=== PATIENT | male | born 1980 | race Caucasian/White ===

== ENCOUNTER 2023-09-14 13:08 | Emergency (ER) | payer BC, SELFPAY ==
--- NOTE | ~2023-09-14 | XR_ITS ---
EXAMINATION: XR hand RT min 3V DATE: 09/14/2023 13:56 INDICATION: Right hand swelling and drainage. TECHNIQUE: 4 views of right hand were obtained. COMPARISON: None. FINDINGS: Bone alignment is normal. No fracture. 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 IMPRESSION: 1. No evidence of osteomyelitis. Reviewed, dictated and finalized at location A.
[2023-09-14 13:14] VITALS: BP 143/94; PULSE 82; RESP 16; TEMP 36.8; O2SAT 97
--- NOTE | 2023-09-14 13:19 | ED.SKABFB ---
HPI - Skin/Abscess/Foreign Bdy General Chief complaint: Skin/Abscess/Foreign Body <Wilfred Francisco PA-C - Last Filed: 09/14/23 16:54> Stated complaint: staff infection on hand <Wilfred Francisco PA-C - Last Filed: 09/14/23 16:54> Time Seen by Provider: 09/14/23 13:11 <REX Brown Last Filed: 09/14/23 16:54> Source: patient <REX Brown Last Filed: 09/14/23 16:54> Mode of arrival: ambulatory <REX Brown Last Filed: 09/14/23 16:54> Limitations: no limitations <REX Brown Last Filed: 09/14/23 16:54> History of Present Illness HPI narrative: This is a 43-year-old male who presents to the ED with chief complaint of possible staph infection to the right hand. 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 He states that on Sunday 3 days ago he started to have some redness and swelling to the right 5th knuckle. States that the swelling has gradually progressed and pain has increased. Reports that the area has been draining purulent/there is fluid. He states that all started with a accidental abrasion from his dog. <Wilfred Francisco PA-C - Last Filed: 09/14/23 16:54> Related Data Allergies/Adverse reactions: Allergies Allergy/AdvReac Type Severity Reaction Status Date / Time No Known Allergies Allergy Verified 09/14/23 13:09 <REX Brown Last Filed: 09/14/23 16:54> Review of Systems Review of Systems: All systems as dictated in HPI <REX Brown Last Filed: 09/14/23 16:54> Exam Narrative: GENERAL: Well-appearing, well-nourished, and in no acute distress. HEAD: Normocephalic, atraumatic. EYES: PERRLA and EOMI. ENT: Nares clear, no rhinorrhea or epistaxis. Mucous membranes moist. Oropharynx without tonsillar hypertrophy exudate or other lesions. NECK: Supple. No adenopathy or masses. CHEST: No respiratory distress. Clear to auscultation. No wheezes rales or rhonchi HEART: Regular rate and rhythm. No murmur heard. Normal peripheral pulses. ABDOMEN: Soft, nontender, nondistended, normal active bowel sounds. MSK: Normal range of motion. No edema. Full range of motion bilateral hands, however with pain SKIN: your the month swelling to the right 5th MCP dorsally. There is serous/purulent material actively draining out of a small 2 mm abrasion type wound. The wound does not appear to be very deep. The area is tender to touch and purulence is easily expressed with light pressure. NEURO: Alert and oriented x4. No focal deficits. PSYCH: Normal mood and affect. bedside ultrasound: Able to examine the soft tissue and joint space of the right 5th MCP. Does not appear that the infection is tracking deep into joint space. Soft tissue swelling is noted and small superficial fluid collection noted. <Wilfred Francisco PA-C - Last Filed: 09/14/23 16:54> Course Vital Signs Vital signs: Vital Signs Temperature 98.3 F 09/14/23 13:14 Pulse Rate 82 09/14/23 13:14 Respiratory Rate 16 09/14/23 13:14 Blood Pressure 143/94 H 09/14/23 13:14 Pulse Oximetry 97 09/14/23 13:14 Oxygen Delivery Room Air 09/14/23 13:14 Temperature 98.3 F 09/14/23 13:14 Pulse Rate 84 09/14/23 16:34 Respiratory Rate 17 09/14/23 16:34 Blood Pressure 120/82 09/14/23 16:34 Pulse Oximetry 98 09/14/23 16:34 Oxygen Delivery Room Air 09/14/23 13:14 <Wilfred Francisco PA-C - Last Filed: 09/14/23 16:54> Vital Signs Temperature 98.3 F 09/14/23 13:14 Pulse Rate 82 09/14/23 13:14 Respiratory Rate 16 09/14/23 13:14 Blood Pressure 143/94 H 09/14/23 13:14 Pulse Oximetry 97 09/14/23 13:14 Oxygen Delivery Room Air 09/14/23 13:14 Temperature 98.3 F 09/14/23 13:14 Pulse Rate 84 08/09/24 16:34 Respiratory Rate 17 09/14/23 16:34 Blood Pressure 120/82 09/14/23 16:34 Pulse Oximetry 98 09/14/23 16:34 Oxygen Delivery Room Air 09/14/23 13:14 <[facility]
[2023-09-14 14:11] LABS: Basophils Percent Auto 0.3 % (0.2-1.2); Eosinophils Absolute Auto 0.1 K/mm3 (0-0.3); Eosinophils Percent Auto 1.2 % (0-4.4); Hematocrit 41.4 % (42.0-52.0); Hemoglobin 14.4 g/dL (14.0-18.0); Immature Granulocyte Absolute 0.04 K/mm3 (0.00-0.031); Immature Granulocyte Percent A 0.4 % (0-0.5); Lymphocytes Absolute Auto 2.44 K/mm3 (0.9-3.2); Mean Corpuscular HGB Conc 34.8 g/dl (32-36); Mean Corpuscular Hemoglobin 31.6 pg (26-34); Mean Corpuscular Volume 90.8 fl (80-100); Mean Platelet Volume 9.1 fl (7.4-10.4); Monocytes Absolute Auto 0.8 K/mm3 (0.1-0.6); Monocytes Percent Auto 7.8 % (2.6-8.5); Neutrophils Absolute Auto 7.1 K/mm3 (1.3-6.7); Neutrophils Percent Auto 67.3 % (45.5-73.1); Platelet Count Result 202 k/mm3 (150-375); Red Blood Count 4.56 M/mm3 (4.6-6.20); Red Cell Distribution Width 11.7 % (11.5-14.5); White Blood Count 10.6 K/mm3 (4.5-10.0)
[2023-09-14] MEDS: ceFAZolin 1 GM/NS 50 ML 1 GM/50 ML BAG IVPB (14:15)
[2023-09-14] MEDS: KETOROLAC 30 MG/ML VIAL (*BKC) IV PUSH (14:15)
[2023-09-14 14:20] LABS: Alanine Aminotransferase 22 U/L (6-50); Albumin Level 4.4 g/dL (3.5-5.1); Alkaline Phosphatase 68 U/L (38-126); Anion Gap 9 mmol/L (4-12); Aspartate Amino Transferase 26 U/L (17-59); Bilirubin,Total 0.7 mg/dL (0.2-1.3); Blood Urea Nitrogen 15 mg/dL (9-20); CRP 1.5 mg/dL (<1.0); Calcium 9.1 mg/dL (8.4-10.2); Carbon Dioxide 28 mmol/L (22-30); Chloride 101 mmol/L (98-107); Estimated Glomerular Filt Rate > 60; Glucose 91 mg/dL (65-110); Potassium 4.1 mmol/L (3.4-5.0); Sodium 138 mmol/L (137-145)
[2023-09-14 16:34] VITALS: BP 120/82; PULSE 84; RESP 17; O2SAT 98
== END 2023-09-14 16:36 | disposition home or self-care (01) ==
PROVIDERS: Emergency Provider Physician Assistant; PCP Internal Medicine
DX: L03.113 Cellulitis of right upper limb (principal)
CPT/HCPCS: 10061; 36415; 73130; 80053; 85025; 86140; 87070; 87081; 87181; 87205; 96365; 96375; 99284; J0690; J1885